=== PATIENT | male | born 1970 | race Caucasian/White ===

== ENCOUNTER → 2017-02-25 | Outpatient (CLI) | payer OTHER ==
[~2017-02-25] MED LIST: ASCO100019 PO; MELO15TA24 PO; METF500T4 PO; MONT10TA9 PO; OMEP-110 PO; RANI150T4 PO; [UNRECOGNIZED DRUG - OTHER] PO
[2017-02-25 14:39] LABS: HEMOGLOBIN 16.9 g/dL (13.7-18.0); WHITE BLOOD COUNT 9.5 x10^3/uL (3.4-10)
[2017-02-25 14:45] LABS: ASPARTATE AMINO TRANSFERASE 42 U/L (15-37); BLOOD UREA NITROGEN 20 mg/dL (7-18)
== END | disposition home or self-care (01) ==
LOC: STAR 13:34
PROVIDERS: ATTEND Otolaryngology Facial Plastic Surgery
DX: Z01.818 Encounter for other preprocedural examination (principal); G47.33 Obstructive sleep apnea (adult) (pediatric); J34.2 Deviated nasal septum; M95.0 Acquired deformity of nose
CPT/HCPCS: 36415; 71020; 80053; 85025; 93005

== ENCOUNTER 2018-10-25 11:30 | Inpatient (IN) | payer OTHER ==
[~2018-10-25] VITALS: Ht 190.5 cm; Wt 130.9 kg
[~2018-10-25 11:30] MED LIST changes: +METF500T17 PO; -METF500T4 PO
--- NOTE | 2018-10-25 11:49 | NUR ---
PT AMBULATORY TO ROOM 1 W/ C/O R HAND PAIN, SWELLING, AND MILD REDNESS. PT DENIES INJURY TO R HAND. 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 [facility] [place]. MONITORS APPLIED. VSS.
[2018-10-25 12:14] LABS: BASOPHILS # (AUTO) 0.03 x10^3/uL (0-0.1); BASOPHILS % (AUTO) 0 % (0-1); EOSINOPHILS # (AUTO) 0.44 x10^3/uL (0-0.4); EOSINOPHILS % (AUTO) 5 % (1-7); LYMPHOCYTES # (AUTO) 2.34 x10^3/uL (1-3.4); LYMPHOCYTES % (AUTO) 25 % (22-44); MD NO; MEAN CORPUSCULAR HEMOGLOBIN 31.7 pg (27.5-34.5); MEAN CORPUSCULAR HGB CONC 34.5 g/dL (33.2-36.2); MEAN CORPUSCULAR VOLUME 91.9 fL (81-97); MEAN PLATELET VOLUME 7.9 fL (7.4-10.4); MONOCYTES # (AUTO) 0.46 x10^3/uL (0.2-0.8); MONOCYTES % (AUTO) 5 % (2-9); NEUTROPHILS # (AUTO) 6.03 x10^3/uL (1.8-6.8); NEUTROPHILS % (AUTO) 65 % (42-75); PLATELET COUNT 292 x10^3/uL (130-400); RED BLOOD COUNT 4.89 x10^6/uL (4.38-5.82); RED CELL DISTRIBUTION WIDTH 12.4 % (9.4-14.8)
[2018-10-25 12:17] LABS: ALBUMIN 4.2 g/dL (3.4-5.0); ANION GAP 7 mmol/L (5-15); CALCIUM 8.8 mg/dL (8.5-10.1); CHLORIDE 107 mmol/L (98-107)
--- NOTE | 2018-10-25 12:38 | NUR ---
PT CHART REVIEWED AND PLACED FOR RECHECK.
[2018-10-25] MEDS ORDERED: SODIUM CHLORIDE FLUSH 10ML SYR IVF ONE (13:00)
--- NOTE | 2018-10-25 13:45 | NUR ---
PT RESTING ON JEANNINE. VSS. AWARE OF POC FOR ADMIT.
--- NOTE | 2018-10-25 14:00 | NUR ---
PER ERP DR. WICK NO NEED FOR BC AND HOLD OFF ON IV ANT UNTIL SEEN BY ORTHO.
[2018-10-25] MEDS ORDERED: KETOROLAC 30 MG/1 ML ONE ×2 (14:08→20:04)
--- NOTE | 2018-10-25 14:16 | NUR ---
REPORT GIVEN TO ANGEL, EVA RN. ALL QUESTIONS ANSWERED. AWAITING PT TRANSPORT.
[2018-10-25] MEDS ORDERED: KETOROLAC 30 MG/1 ML IVPush ONE (14:30)
[2018-10-25] MEDS ORDERED: LIDOCAINE 1%, 20ML ONE (14:35)
[2018-10-25] MEDS ORDERED: BUPIVACAINE/PF 0.5% ONE ×2 (14:40→18:53)
[2018-10-25 14:45] VITALS: BP 131/76
[2018-10-25] MEDS ORDERED: ONDANSETRON 2MG/ML, 2ML IVPush PRN (15:30)
[2018-10-25] MEDS ORDERED: hydrALAzine 20 MG/ML, 1ML IVPush PRN (15:30)
[2018-10-25] MEDS ORDERED: morphine SULFATE 10 MG/ML, 1ML IVPush PRN (15:30)
[2018-10-25] MEDS ORDERED: GUAIFENESIN/COD200MG-20MG/10ML LIQUID PO PRN (15:30)
[2018-10-25] MEDS ORDERED: DOCUSATE 100 MG CAPSULE PO PRN (15:30)
[2018-10-25] MEDS ORDERED: ACETAMINOPHEN 325 MG TABLET PO PRN ×2 (15:30→20:00)
[2018-10-25] MEDS ORDERED: CEFAZOLIN 2,000 MG in SODIUM CHLORIDE 0.9% 50 ML IV SCH (16:00)
[2018-10-25] MEDS: D5%-0.45% NACL 1,000 ML IV SCH (16:16)
[2018-10-25] MEDS ORDERED: MIDAZOLAM 1 MG/ML, 2ML ONE (18:52)
[2018-10-25] MEDS ORDERED: FENTANYL PF 250 MCG/5ML ONE (18:52)
[2018-10-25] MEDS ORDERED: GLYCOPYRROLATE 0.2MG/1ML, 5ML ONE (18:53)
[2018-10-25] MEDS ORDERED: ROCURONIUM 10MG/ML,5ML ONE (18:53)
[2018-10-25] MEDS ORDERED: CEFAZOLIN 1,000 MG ONE (18:53)
[2018-10-25] MEDS ORDERED: NEOSTIGMINE 1 MG/ML, 10ML ONE (18:53)
[2018-10-25] MEDS ORDERED: SUCCINYLCHOLINE 20 MG/ML, 10ML ONE (18:53)
[2018-10-25] MEDS ORDERED: ONDANSETRON 2MG/ML, 2ML ONE (18:53)
[2018-10-25] MEDS ORDERED: PROPOFOL 10 MG/ML, 20ML ONE (18:53)
[2018-10-25] MEDS ORDERED: DEXAMETHASONE 4 MG/ML, 1ML ONE (18:53)
[2018-10-25] MEDS ORDERED: FENTANYL PF 100 MCG/2ML ONE (19:35)
[2018-10-25] MEDS ORDERED: MEPERIDINE/PF 25MG/ML,1ML ONE (19:35)
[2018-10-25] MEDS ORDERED: ALBUTEROL SULFATE 2.5 MG/3 ML NPPB PRN (20:00)
[2018-10-25] MEDS ORDERED: KETOROLAC 30 MG/1 ML IV PRN (20:00)
[2018-10-25] MEDS ORDERED: LABETALOL 5MG/ML, 20ML IV PRN (20:00)
[2018-10-25] MEDS ORDERED: PROMETHAZINE 25 MG/ML, 1ML IV PRN (20:00)
[2018-10-25] MEDS ORDERED: OXYcodone 5 MG/5 ML ORAL.SOL UDC PO PRN (20:00)
[2018-10-25] MEDS ORDERED: MEPERIDINE/PF 25MG/0.5ML IVPush PRN (20:00)
[2018-10-25] MEDS ORDERED: hydrALAzine 20 MG/ML, 1ML IV PRN (20:00)
[2018-10-25] MEDS ORDERED: DIAZEPAM 5 MG/ML, 2ML IVPush PRN (20:00)
[2018-10-25] MEDS: FENTANYL PF 100 MCG/2ML IV PRN ×2 (20:02→20:11)
[2018-10-25] MEDS ORDERED: hydrALAzine 20 MG/ML, 1ML ONE (20:04)
[2018-10-25] MEDS ORDERED: OXYcodone 5 MG/5 ML ORAL.SOL UDC ONE (20:04)
[2018-10-25] MEDS ORDERED: ACETAMINOPHEN 650 MG/20.3 ML UDC ONE (20:04)
[2018-10-25] MEDS ORDERED: HYDROmorphone 2 MG/ML, 1ML ONE (20:16)
[2018-10-25] MEDS: HYDROmorphone 2 MG/ML, 1ML IVPush PRN ×2 (20:18→20:23)
[2018-10-25] MEDS ORDERED: ENOXAPARIN 40 MG/0.4 ML SQ SCH (20:30)
[2018-10-25 20:59] VITALS: BP 146/89
[2018-10-25] MEDS ORDERED: INSULIN LISPRO 100 UNITS/ML, PEN SQ-INSULIN SCH (21:00)
[2018-10-25] MEDS ORDERED: HYDROmorphone 1 MG/ML, 1ML INJ IV PRN (21:30)
[2018-10-25] MEDS: MONTELUKAST 10 MG TABLET PO SCH (21:34)
[2018-10-25] MEDS: MELOXICAM 15 MG TABLET PO SCH (21:34)
[2018-10-25] MEDS: OMEPRAZOLE 20 MG CAPSULE.DR PO SCH (21:35)
[2018-10-25] MEDS: metFORMIN 500 MG TABLET PO SCH (21:35)
[2018-10-25] MEDS: OXYcodone/APAP 10/325MG TABLET PO PRN (23:32)
[2018-10-26] MEDS ORDERED: CEFAZOLIN 2,000 MG in SODIUM CHLORIDE 0.9% 50 ML IV SCH
[2018-10-26] MEDS: CEFAZOLIN PMX 2GM/50ML 50 ML IVPB SCH ×3 (00:12→16:22)
[2018-10-26 00:29] VITALS: BP 115/67
[2018-10-26] MEDS: D5%-0.45% NACL 1,000 ML IV SCH (03:45)
[2018-10-26 05:30] LABS: BASOPHILS # (AUTO) 0.02 x10^3/uL (0-0.1); BASOPHILS % (AUTO) 0 % (0-1); EOSINOPHILS % (AUTO) 0 % (1-7); LYMPHOCYTES # (AUTO) 1.24 x10^3/uL (1-3.4); LYMPHOCYTES % (AUTO) 11 % (22-44); MD NO; MEAN CORPUSCULAR HEMOGLOBIN 31.8 pg (27.5-34.5); MEAN CORPUSCULAR HGB CONC 34.5 g/dL (33.2-36.2); MEAN CORPUSCULAR VOLUME 92.2 fL (81-97); MEAN PLATELET VOLUME 7.9 fL (7.4-10.4); MONOCYTES # (AUTO) 0.29 x10^3/uL (0.2-0.8); MONOCYTES % (AUTO) 3 % (2-9); NEUTROPHILS # (AUTO) 9.76 x10^3/uL (1.8-6.8); NEUTROPHILS % (AUTO) 86 % (42-75); PLATELET COUNT 271 x10^3/uL (130-400); RED BLOOD COUNT 4.53 x10^6/uL (4.38-5.82); RED CELL DISTRIBUTION WIDTH 12.5 % (9.4-14.8)
[2018-10-26 05:37] LABS: ANION GAP 6 mmol/L (5-15); CALCIUM 8.6 mg/dL (8.5-10.1); CHLORIDE 105 mmol/L (98-107)
[2018-10-26] MEDS: metFORMIN 500 MG TABLET PO SCH ×2 (07:43→16:21)
[2018-10-26] MEDS: ENOXAPARIN 40 MG/0.4 ML SQ SCH (07:43)
[2018-10-26] MEDS ORDERED: metFORMIN 500 MG TABLET PO SCH (08:00)
[2018-10-26] MEDS: OXYcodone/APAP 10/325MG TABLET PO PRN ×4 (08:00→20:48)
[2018-10-26] MEDS ORDERED: MELOXICAM 15 MG TABLET PO SCH (09:00)
[2018-10-26] MEDS ORDERED: OMEPRAZOLE 20 MG CAPSULE.DR PO SCH (09:00)
[2018-10-26] MEDS ORDERED: MONTELUKAST 10 MG TABLET PO SCH (09:00)
[2018-10-26 09:09] VITALS: BP 124/74
[2018-10-26 15:55] VITALS: BP 131/73
[2018-10-26 18:55] VITALS: BP 146/84
[2018-10-26] MEDS: OMEPRAZOLE 20 MG CAPSULE.DR PO SCH (20:48)
[2018-10-26] MEDS: MONTELUKAST 10 MG TABLET PO SCH (20:48)
[2018-10-26] MEDS: MELOXICAM 15 MG TABLET PO SCH (20:48)
[2018-10-27] MEDS: CEFAZOLIN PMX 2GM/50ML 50 ML IVPB SCH ×4 (00:08→23:51)
[2018-10-27 03:49] VITALS: BP 105/55
[2018-10-27] MEDS: OXYcodone/APAP 10/325MG TABLET PO PRN ×4 (06:30→20:14)
[2018-10-27 07:45] VITALS: BP 150/85
[2018-10-27] MEDS: OMEPRAZOLE 20 MG CAPSULE.DR PO SCH (08:20)
[2018-10-27] MEDS: metFORMIN 500 MG TABLET PO SCH ×2 (08:20→16:17)
[2018-10-27] MEDS: ENOXAPARIN 40 MG/0.4 ML SQ SCH (08:20)
[2018-10-27] MEDS: MONTELUKAST 10 MG TABLET PO SCH (08:20)
[2018-10-27] MEDS: MELOXICAM 15 MG TABLET PO SCH (08:20)
[2018-10-27 13:27] VITALS: BP 152/84
[2018-10-27 20:01] VITALS: BP 118/69
[2018-10-28] MEDS: OXYcodone/APAP 10/325MG TABLET PO PRN ×2 (00:36→07:58)
[2018-10-28 03:40] VITALS: BP 110/72
[2018-10-28 06:43] VITALS: BP 126/78
[2018-10-28] MEDS: CEFAZOLIN PMX 2GM/50ML 50 ML IVPB SCH (07:57)
[2018-10-28] MEDS: MONTELUKAST 10 MG TABLET PO SCH (07:58)
[2018-10-28] MEDS: MELOXICAM 15 MG TABLET PO SCH (07:58)
[2018-10-28] MEDS: metFORMIN 500 MG TABLET PO SCH (07:58)
[2018-10-28] MEDS: OMEPRAZOLE 20 MG CAPSULE.DR PO SCH (07:58)
[2018-10-28] MEDS: ENOXAPARIN 40 MG/0.4 ML SQ SCH (07:58)
[2018-10-28] MEDS ORDERED: OXYC-302 PO (08:35)
[2018-10-28] MEDS ORDERED: CEPH-368 PO (08:35)
== END 2018-10-28 10:17 | disposition home or self-care (01) | DRG 580 ==
LOC: ED 11:56 → EDIP 13:13 → 4NOR 14:40 → DCLOUNGE 10-28 10:08
PROVIDERS: ADMIT Internal Medicine; ATTEND Internal Medicine
PROC: 0JBJ0ZZ Excision of Right Hand Subcutaneous Tissue and Fascia, Open Approach (ICD-10-PCS; 2018-10-25)
PROC: 0J9J0ZZ Drainage of Right Hand Subcutaneous Tissue and Fascia, Open Approach (ICD-10-PCS; principal; 2018-10-25 18:00)
DX: L03.113 Cellulitis of right upper limb (principal); L02.511 Cutaneous abscess of right hand; E11.9 Type 2 diabetes mellitus without complications; G47.33 Obstructive sleep apnea (adult) (pediatric); I10 Essential (primary) hypertension; K21.9 Gastro-esophageal reflux disease without esophagitis; M19.041 Primary osteoarthritis, right hand; M19.042 Primary osteoarthritis, left hand; M65.9 Synovitis and tenosynovitis, unspecified; Z82.49 Family history of ischemic heart disease and other diseases of the circulatory system; Z83.3 Family history of diabetes mellitus; Z87.09 Personal history of other diseases of the respiratory system; Z88.0 Allergy status to penicillin; Z79.899 Other long term (current) drug therapy
CPT/HCPCS: 36415; 73130; 99285; S0020; 80048; 82040; 82962; 85025; 87015; 87070; 87075; 87077; 87102; 87116; 87186; 87205; 87206; 96374; G0378; J0690; J1100; J1170; J1650; J1885; J2175; J2250; J2405; J2704; J2710; J3010; J0330; J0360; J2270